=== PATIENT | male | born 1990 | race African-American/Black ===

== ENCOUNTER 2023-03-13 22:53 | Emergency (ER) | payer OTHER ==
[~2023-03-13] VITALS: Ht 165.1 cm; Wt 58.8 kg
[2023-03-13 23:48] VITALS: BP 157/105; PULSE 94; RESP 18; TEMP 97.7; O2SAT 97
[2023-03-14] MEDS ORDERED: TETANUS-DIPTH-ACEL PERTUSSIS 0.5ML SYR Tdap IM ONE (00:15)
== END 2023-03-14 00:59 | disposition home or self-care (01) ==
LOC: ER 22:53
DX: S61.210A Laceration without foreign body of right index finger without damage to nail, initial encounter (principal); F17.210 Nicotine dependence, cigarettes, uncomplicated; F12.90 Cannabis use, unspecified, uncomplicated; W26.8XXA Contact with other sharp object(s), not elsewhere classified, initial encounter; Y93.89 Activity, other specified; Y92.89 Other specified places as the place of occurrence of the external cause; Y99.8 Other external cause status
CPT/HCPCS: 12001; 90471; 90715

== ENCOUNTER 2023-03-20 18:42 | Emergency (ER) | payer OTHER ==
[~2023-03-20] VITALS: Ht 165.1 cm; Wt 58.6 kg
[2023-03-20 19:00] VITALS: BP 145/97; PULSE 94; RESP 16; O2SAT 100
[2023-03-20] MEDS ORDERED: MUPI2OIN2 EX (19:37)
== END 2023-03-20 20:37 | disposition home or self-care (01) ==
LOC: ER 18:42
DX: S61.210D Laceration without foreign body of right index finger without damage to nail, subsequent encounter (principal); F17.210 Nicotine dependence, cigarettes, uncomplicated; F12.10 Cannabis abuse, uncomplicated; X58.XXXD Exposure to other specified factors, subsequent encounter

== ENCOUNTER 2023-03-23 11:59 | Emergency (ER) | payer OTHER ==
[~2023-03-23] VITALS: Ht 165.1 cm; Wt 56.8 kg
[~2023-03-23 11:59] MED LIST: MUPI2OIN2 EX
[2023-03-23 12:39] VITALS: BP 137/98; PULSE 100; RESP 16; TEMP 98.4; O2SAT 99
[2023-03-23] MEDS ORDERED: CEPH500C PO (13:00)
[2023-03-23] MEDS ORDERED: TOB03OS OP (13:00)
== END 2023-03-23 13:04 | disposition home or self-care (01) ==
LOC: ER 11:59
DX: H00.012 Hordeolum externum right lower eyelid (principal); F17.210 Nicotine dependence, cigarettes, uncomplicated; F12.90 Cannabis use, unspecified, uncomplicated; Z79.899 Other long term (current) drug therapy